=== PATIENT | male | born 1945 | race African-American/Black ===

== ENCOUNTER 2018-05-18 10:07 | Inpatient (IN) ==
[2018-05-18] MEDS ORDERED: Diphtheria/Tetanus/Pertussis Vaccine Inj 0.5 ML Syringe IM ONE (10:12)
[2018-05-18] MEDS ORDERED: Morphine Inj 4 MG/ML Vial ONE (10:12)
[2018-05-18 10:30] LABS: Baso % (Auto) 0.6 % (0.0-2.0); Eos % (Auto) 0.6 % (0.0-4.0); Hematocrit 40.1 % (39.0-51.0); Hemoglobin 13.3 gm/dL (13.0-17.0); Lymph # (Auto) 1.8 th/mm3 (1.0-4.8); Lymph % (Auto) 33.9 % (9.0-44.0); Mean Corpuscular HGB Conc 33.3 % (32.0-36.0); Mean Corpuscular Hemoglobin 29.4 pg (27.0-34.0); Mean Corpuscular Volume 88.3 fL (80.0-100.0); Mono # (Auto) 0.4 th/mm3 (0.0-0.9); Mono % (Auto) 7.8 % (0.0-8.0); Neut # (Auto) 3.1 th/mm3 (1.8-7.7); Neut % (Auto) 57.1 % (16.0-70.0); Platelet Count 162 th/mm3 (150-450); Red Blood Count 4.54 mil/mm3 (4.50-5.90); Red Cell Distribution Width 15.1 % (11.6-17.2); White Blood Count 5.4 th/mm3 (4.0-11.0)
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
[2018-05-18 10:46] LABS: Activated Partial Thrombo Time 20.3 sec (24.3-30.1); Prothrombin Time 10.5 sec (9.8-11.6)
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
[2018-05-18] MEDS ORDERED: Morphine Inj 4 MG/ML Vial IV.PUSH ONE (11:05)
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
[2018-05-18] MEDS ORDERED: Lidocaine 2% Inj 50 ML Vial NERV BLOCK ONE (11:46)
[2018-05-18] MEDS ORDERED: Lidocaine 1% Inj 50 ML Vial INFILTRATN ONE (11:47)
[2018-05-18 12:17] LABS: Creatine Kinase 452 U/L (39-308)
[2018-05-18 12:29] LABS: CKMB Percent 0.9 % (0.0-4.0); Creatine Kinase MB 4.2 ng/mL (0.5-3.6)
[2018-05-18] MEDS ORDERED: Bisacodyl 10 MG Supp RECTAL PRN (13:03)
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
[2018-05-18] MEDS: Sod Chloride 0.9% Inj 1,000 ML IV.CONT SCH ×2 (13:26→22:33)
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
--- NOTE | 2018-05-18 17:35 | ECHRPT ---
Indication: CHEST PAIN, SYNCOPE CONCLUSIONS Normal left ventricular size. The left ventricular systolic function is [id number] reduced with an estimated ejection fra ction in the range of 35-40%. There is trace tricuspid valve regurgitation. The estimated pulmonary arterial pressure is 26 mmHg. trace aortic valve regurgitation BP: / HR: Rhythm: Sinus MEASUREMENTS (Male / Female) Normal Values Technical Quality:Fair 2D ECHO LV Diastolic Diameter PLAX 4.9 cm 4.2 - 5.9 / 3.9 - 5.3 cm LV Systolic Diameter PLAX 4.1 cm IVS Diastolic Thickness 1.3 cm 0.6 - 1.0 / 0.6 - 0.9 cm LVPW Diastolic Thickness 1.3 cm 0.6 - 1.0 / 0.6 - 0.9 cm LV Relative Wall Thickness 0.5 RV Internal Dim ED PLAX 2.6 cm LVOT Diameter 2.5 cm Aortic Root Diameter 3.7 cm LA Systolic Diameter LX 3.5 cm 3.0 - 4.0 / 2.7 - 3.8 cm M-MODE AV Cusp Separation MM 1.9 cm DOPPLER AV Peak Velocity 132.0 cm/s AV Peak Gradient 7.0 mmHg AV Mean Gradient 4.0 mmHg AV Velocity Time Integral 22.0 cm LVOT Peak Velocity 94.0 cm/s LVOT Peak Gradient 3.5 mmHg LVOT Velocity Time Integral 17.7 cm AV Area Cont Eq vti 3.9 cm AV Area Cont Eq pk 3.5 cm Mitral E Point Velocity 51.3 cm/s Mitral A Point Velocity 85.9 cm/s Mitral E to A Ratio 0.6 LV E' Lateral Velocity 5.6 cm/s Mitral E to LV E' Lateral Ratio 9.2 LV E' Septal Velocity 4.4 cm/s Mitral E to LV E' Septal Ratio 11.7 TR Peak Velocity 200.0 cm/s TR Peak Gradient 16.0 mmHg Right Atrial Pressure 10.0 mmHg Pulmonary Artery Systolic Pressu 26.0 mmHg Right Ventricular Systolic Press 26.0 mmHg PV Peak Velocity 81.2 cm/s PV Peak Gradient 2.6 mmHg FINDINGS LEFT VENTRICLE Normal left ventricular size. The left ventricular systolic function is [id number] reduced with an estimated ejection fra ction in the range of 35-40%. RIGHT VENTRICLE Normal right ventricular size and systolic function. LEFT ATRIUM The left atrial size is normal. RIGHT ATRIUM The right atrial size is normal. ATRIAL SEPTUM Normal atrial septal thickness without atrial level shunting by limited color doppler interrogation. AORTA The aortic root and proximal ascending aorta are normal in size on limited imaging. MITRAL VALVE Structurally normal mitral valve. No mitral valve stenosis or regurgitation. AORTIC VALVE Trileaflet aortic valve. No aortic valve stenosis or regurgitation. TRICUSPID VALVE There is trace tricuspid valve regurgitation. The estimated pulmonary arterial pressure is 26 mmHg. PULMONARY VALVE No pulmonary valve regurgitation or stenosis. VESSELS The inferior vena cava is normal in size. PERICARDIUM No pericardial effusion. Gavin Persaud MD, FACC, [facility] (Electronically Signed) Final Date:18 May 2018 17:34
[2018-05-18] MEDS: ceFAZolin Inj 2,000 MG in Sodium Chlor 0.9% Inj 80 ML IV.SIG SCH ×2 (18:53→23:57)
[2018-05-18] MEDS: Famotidine PF Inj 20 MG/2 ML Vial IV.PUSH SCH (20:48)
[2018-05-18] MEDS: Senna/Docusate Sodium 8.6/50 MG Tablet PO SCH (20:48)
[2018-05-19] MEDS: Sod Chloride 0.9% Inj 1,000 ML IV.CONT SCH ×4 (00:33→23:30)
[2018-05-19] MEDS ORDERED: Chlorhexidine Gluconate 2% 1 Pack (2 Cloths) TOPICAL PRN (04:00)
[2018-05-19 04:21] LABS: Baso % (Auto) 0.2 % (0.0-2.0); Eos % (Auto) 0.3 % (0.0-4.0); Hematocrit 35.5 % (39.0-51.0); Hemoglobin 11.9 gm/dL (13.0-17.0); Lymph # (Auto) 1.3 th/mm3 (1.0-4.8); Lymph % (Auto) 16.7 % (9.0-44.0); Mean Corpuscular HGB Conc 33.4 % (32.0-36.0); Mean Corpuscular Hemoglobin 29.3 pg (27.0-34.0); Mean Corpuscular Volume 87.5 fL (80.0-100.0); Mean Platelet Volume 8.4 fL (7.0-11.0); Mono # (Auto) 0.7 th/mm3 (0.0-0.9); Mono % (Auto) 9.4 % (0.0-8.0); Neut # (Auto) 5.8 th/mm3 (1.8-7.7); Neut % (Auto) 73.4 % (16.0-70.0); Platelet Count 130 th/mm3 (150-450); Red Blood Count 4.06 mil/mm3 (4.50-5.90); Red Cell Distribution Width 15.2 % (11.6-17.2); White Blood Count 7.9 th/mm3 (4.0-11.0)
[2018-05-19 04:41] LABS: Calcium 8.1 mg/dL (8.5-10.1); Carbon Dioxide 23.7 meq/L (21.0-32.0); Potassium 3.6 meq/L (3.5-5.1)
[2018-05-19] MEDS: Chlorhexidine Gluconate 2% 1 Pack (2 Cloths) TOPICAL SCH (05:33)
[2018-05-19] MEDS: ceFAZolin Inj 2,000 MG in Sodium Chlor 0.9% Inj 80 ML IV.SIG SCH ×3 (06:24→23:00)
--- NOTE | 2018-05-19 08:12 | P.PN ---
Subjective Interval history: No acute events overnight. Patient still reports pain in his upper face. Reports that his vision has improved from yesterday in the right eye. He also notes that he has been having some nasal drainage. Today he also reports limited mobility in his right leg as compared to his left leg. Physical Exam Vital signs: Vital Signs 05/18/18 10:05 05/18/18 10:08 05/18/18 10:10 Temperature Pulse Rate 88 Respiratory Rate Blood Pressure Pulse Oximetry 100 100 05/18/18 10:45 05/18/18 10:50 05/18/18 11:20 Temperature 97.9 F 97.8 F Pulse Rate 88 76 Respiratory Rate 26 H 18 18 Blood Pressure 170/96 H 157/98 H Pulse Oximetry 100 99 05/18/18 11:43 05/18/18 12:43 05/18/18 13:09 Temperature 97.8 F 97.8 F 97.9 F Pulse Rate 76 79 76 Respiratory Rate 18 20 20 Blood Pressure 162/99 H 155/93 H 146/95 H Pulse Oximetry 98 100 98 05/18/18 14:20 05/18/18 15:15 05/18/18 16:00 Temperature 97.9 F 98.7 F 98.7 F Pulse Rate 76 76 79 Respiratory Rate 20 20 22 Blood Pressure 133/77 183/104 H 180/110 H Pulse Oximetry 99 99 98 05/18/18 17:00 05/18/18 17:11 05/18/18 18:00 Temperature Pulse Rate 76 78 77 Respiratory Rate 18 20 16 Blood Pressure 167/108 H 170/108 H Pulse Oximetry 97 95 05/18/18 18:30 05/18/18 19:00 05/18/18 20:00 Temperature 98.4 F Pulse Rate 71 68 Respiratory Rate 13 12 Blood Pressure 158/100 H 157/99 H 168/100 H Pulse Oximetry 98 100 05/18/18 21:00 05/18/18 21:19 05/18/18 21:21 Temperature Pulse Rate 74 72 Respiratory Rate 29 H 22 Blood Pressure 176/101 H Pulse Oximetry 99 97 05/18/18 22:00 05/18/18 23:00 05/18/18 23:26 Temperature Pulse Rate 78 74 Respiratory Rate 11 L 10 L Blood Pressure 170/104 H 153/96 H Pulse Oximetry 95 97 96 05/19/18 00:00 05/19/18 01:00 05/19/18 02:00 Temperature 98.4 F Pulse Rate 67 68 68 Respiratory Rate 10 L 18 13 Blood Pressure 176/106 H 176/106 H 184/104 H Pulse Oximetry 100 100 100 05/19/18 03:00 05/19/18 03:09 05/19/18 03:10 Temperature Pulse Rate 72 74 Respiratory Rate 19 19 Blood Pressure 173/99 H Pulse Oximetry 100 98 05/19/18 04:00 05/19/18 05:00 05/19/18 06:00 Temperature 98.4 F Pulse Rate 72 72 68 Respiratory Rate 19 16 17 Blood Pressure 168/97 H 152/90 H 168/100 H Pulse Oximetry 97 100 100 Intake & Output 05/18/18 05/19/18 05/19/18 18:59 06:59 18:59 Intake Total 120 / 120 1200 / 1200 Output Total 300 / 300 Balance -180 / -180 1200 / 1200 Weight 100 kg 104.1 kg Intake: IV 1200 / 1200 NS Inj 1,000 ML @ 100 mls/hr IV 1000 / 1000 .CONT .Q10H MAU Rx#:[id number] Ancef Inj 2,000 MG In NS Inj 80 200 / 200 ML @ 200 mls/hr IV.SIG Q8H MAU Rx#:[id number] Oral 120 / 120 Output: Urine 300 / 300 Other: # Bowel Movements 0 Narrative: General: Resting in bed, appropriate, comfortable and in no apparent distress. Neurological: Alert and oriented to person, place, and time. HEENT: Head/Face: Bilateral midface edema R>L. Tenderness to palpation in the right infraorbital region. Incisions clean, dry and intact with sutures intact. Midface grossly mobile at the LeFort 1 level. C-collar in place. Eyes/Orbits: PERRL. EOMI. Chemosis of the right eye. . Oral Cavity/Oropharynx: Oral cavity with hemorrhagic crusting. Multiple teeth fractured at the level of the gingiva. Hematoma of the left buccal mucosa. Floor of mouth soft. Cardiovascular: Regular rate Pulmonary: Normal work of breathing. Extremities: Warm, well perfused. Results - Labs CBC & Chem 7: 05/19/18 03:56 05/19/18 03:56 Laboratory Results - last 24 hr 05/18/18 05/18/18 05/18/18 10:13 10:13 10:13 WBC 5.4 RBC 4.54 Hgb 13.3 POC Hgb (Calc) 13.9 Hct 40.1 POC Hct 41.0 MCV 88.3 MCH 29.4 MCHC 33.3 RDW 15.1 Plt Count 162 MPV 9.0 Neut % (Auto) 57.1 Lymph % (Auto) 33.9 Martin % (Auto) 7.8 Eos % (Auto) 0.6 Baso % (Auto) 0.6 Neut # (Auto) 3.1 Lymph # (Auto) 1.8 Martin # (Auto) 0.4 Eos # (Auto) 0.0 Baso # (Auto) 0.0 WBC Differential . Differential Comment Auto diff final PT 10.5 INR 1.0 APTT 20.3 L POC Sodium 142 Sodium POC Potassium 4.5 Potassium POC Chloride 106 Chloride Carbon Dioxide Anion Gap POC BUN 27 H BUN Creatinine POC Creatinine 1.9 H Estimated GFR POC Glucose 131 H Random Glucose Calcium Total Creatine Kinase CK-MB (CK-2) CK-MB (CK-2) % Troponin I Nasal Screen MRSA (PCR) Blood Type Blood Type Recheck Antibody Screen 05/18/18 05/18/18 05/18/18 10:13 10:13 19:15 WBC RBC Hgb POC Hgb (Calc) Hct POC Hct MCV MCH MCHC RDW Plt Count MPV Neut % (Auto) Lymph % (Auto) Martin % (Auto) Eos % (Auto) Baso % (Auto) Neut # (Auto) Lymph # (Auto) Martin # (Auto) Eos # (Auto) Baso # (Auto) WBC Differential Differential Comment PT INR APTT POC Sodium Sodium POC Potassium Potassium POC Chloride Chloride Carbon Dioxide Anion Gap POC BUN BUN Creatinine POC Creatinine Estimated GFR POC Glucose Random Glucose Calcium Total Creatine Kinase 452 H CK-MB (CK-2) 4.2 H CK-MB (CK-2) % 0.9 Troponin I Less than 0.02 L Nasal Screen MRSA (PCR) Not detected Blood Type B Positive Blood Type Recheck Required Antibody Screen Negative 05/19/18 05/19/18 03:56 03:56 WBC 7.9 RBC 4.06 L Hgb 11.9 L POC Hgb (Calc) Hct 35.5 L POC Hct MCV 87.5 MCH 29.3 MCHC 33.4 RDW 15.2 Plt Count 130 L MPV 8.4 Neut % (Auto) 73.4 H Lymph % (Auto) 16.7 Martin % (Auto) 9.4 H Eos % (Auto) 0.3 Baso % (Auto) 0.2 Neut # (Auto) 5.8 Lymph # (Auto) 1.3 Martin # (Auto) 0.7 Eos # (Auto) 0.0 Baso # (Auto) 0.0 WBC Differential . Differential Comment Auto diff final PT INR APTT POC Sodium Sodium 142 POC Potassium Potassium 3.6 POC Chloride Chloride 108 H Carbon Dioxide 23.7 Anion Gap 10 POC BUN BUN 25 H Creatinine 1.54 H POC Creatinine Estimated GFR 47 L POC Glucose Random Glucose 114 H Calcium 8.1 L Total Creatine Kinase CK-MB (CK-2) CK-MB (CK-2) % Troponin I Nasal Screen MRSA (PCR) Blood Type Blood Type Recheck Antibody Screen - Imaging Impressions Chest X-Ray 05/18/18 10:08 CONCLUSION: No acute cardiopulmonary disease identified. Pelvis X-Ray 05/18/18 10:08 CONCLUSION: No evidence of fracture. Abdomen/Pelvis CT 05/18/18 10:15 CONCLUSION: 1. Subtle subcapsular hypodensity in the inferior right lobe of the liver is likely artifactual due to artifact from patient's arms. Although very unlikely, a subtle liver laceration cannot be entirely excluded. 2. Otherwise, no acute traumatic abnormality in the abdomen or pelvis. Cervical Spine CT 05/18/18 10:15 CONCLUSION: 1. Small nondisplaced fracture of the posterior tubercle of the right transverse process of C7. No other fractures identified. Alignment within normal limits. 2. Multilevel degenerative findings of the cervical spine with mild central canal narrowing at multiple levels. Chest CT 05/18/18 10:15 CONCLUSION: 1. Dilation of the ascending aorta, aortic arch and descending thoracic aorta as above. There is no evidence of traumatic aortic injury. 2. The lungs are clear. No pneumothorax is identified. Face CT 05/18/18 10:15 CONCLUSION: Extensive central facial bone fractures bilaterally including fractures involving the nasal bone, maxillary sinuses, right orbit, and hard palate. Head CT 05/18/18 10:15 CONCLUSION: 1. Complex facial bone fractures. Please see facial bone CT exam for additional details. 2. No acute intracranial abnormality. . Assessment and Plan - Assessment (1) LeFort I fracture of maxilla Code(s): S02.411A - LeFort I fracture, initial encounter for closed fracture Status: Acute (2) Nasal bone fracture Code(s): S02.2XXA - Fracture of nasal bones, initial encounter for closed fracture Status: Acute (3) Orbital fracture Code(s): S02.80XA - Fracture of other specified skull and facial bones, unspecified side, initial encounter for closed fracture Status: Acute (4) Fracture, palate closed Code(s): S02.80XA - Fracture of other specified skull and facial bones, unspecified side, initial encounter for closed fracture Status: Acute - Plan Patient will be posted for the OR for ORIF of a LeFort 1 fracture and closed reduction of his nasal bone fractures as well as extraction of indicated teeth once patient is stable for OR. Right orbital fracture is minimally displaced and risks outweigh benefits at this time for repair. No evidence of entrapment of the extraocular muscles at the current time. Surgical risks and benefits were discussed with the patient, including but not limited to pain, swelling, bleeding, infection, nerve/vessel injury, scarring, temporomandibular dysfunction. All patient questions were answered. Patient has elected to proceed with procedure. Written and verbal consent obtained. As the maxillary fractures are open, agree with Ancef for antibiotic prophylaxis Please maintain sinus precautions to avoid subcutaneous emphysema. No nose blowing. Sneeze and cough with an open mouth. Gentle oral hygiene with Chlorhexidine swabs twice daily. Please make patient NPO at midnight tonight for surgery scheduled for 0800 on 05/20/18, [place] with clear liquid diet until then. Thank you for this consultation. Please don't hesitate to contact me at [phone] with any additional questions or concerns. Lawson Hamm DDS, MD (1) LeFort I fracture of maxilla Qualifiers: Encounter type: initial encounter Fracture type: closed Qualified Code(s): S02.411A - LeFort I fracture, initial encounter for closed fracture (2) Nasal bone fracture Qualifiers: Encounter type: initial encounter Fracture type: closed Qualified Code(s): S02.2XXA - Fracture of nasal bones, initial encounter for closed fracture (3) Orbital fracture Qualifiers: Encounter type: initial encounter Fracture type: closed Qualified Code(s): S02.80XA - Fracture of other specified skull and facial bones, unspecified side , initial encounter for closed fracture (4) Fracture, palate closed Qualifiers: Encounter type: initial encounter Qualified Code(s): S02.80XA - Fracture of other specified skull and facial bones, unspecified side, initial encounter for closed fracture
[2018-05-19] MEDS: Senna/Docusate Sodium 8.6/50 MG Tablet PO SCH ×2 (08:25→21:09)
[2018-05-19] MEDS: Lisinopril 20 MG Tablet PO SCH (08:25)
[2018-05-19] MEDS: Famotidine PF Inj 20 MG/2 ML Vial IV.PUSH SCH ×2 (08:25→21:09)
--- NOTE | 2018-05-19 12:21 | US ---
EXAM DATE: 05/19/2018 12:13 PM EDT AGE/SEX: 72 years / Male INDICATIONS: Syncope. CLINICAL DATA: This is the patient's initial encounter. Patient reports that signs and symptoms have been present for 1 day and indicates a pain score of 0/10. MEDICAL/SURGICAL HISTORY: . High blood pressure. . Surgery on arm. COMPARISON: No prior exams available for comparison. VELOCITY PARAMETERS: ICA/CCA Ratio: Right 0.8 , Left 1.3 ICA: Right 50 cm/sec, Left 77 cm/sec CCA: Right 66 cm/sec, Left 61 cm/sec ECA: Right 78 cm/sec, Left 84 cm/sec Vertebral: Right 52 cm/sec antegrade, Left 59 cm/sec antegrade FINDINGS: Right Carotid: No significant plaque is visualized.The waveforms are within normal limits. Left Carotid: Mild arteriosclerotic plaque is visualized. The waveforms are within normal limits. Other: None. CONCLUSION: 1. Right Internal Carotid Artery: No evidence of significant stenosis. 2. Left Internal Carotid Artery: No evidence of significant stenosis. Electronically signed by: Karo Rubio MD 05/19/2018 12:20 PM EDT
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
--- NOTE | 2018-05-19 14:29 | ECG ---
Date Performed: 05/18/2018 Time Performed: 11:02:28 PTAGE: 89 years EKG: Sinus rhythm WITH FIRST DEGREE AV BLOCK LEFT VENTRICULAR HYPERTROPHY ST-T CHANGES secondary to LVH vs ischemia vs other ABNORMAL ECG NO PREVIOUS TRACING DOCTOR: Roshni Jolly Interpretating Date/Time 05/19/2018 14:28:57
--- NOTE | 2018-05-19 20:18 | XR ---
EXAM DATE: 05/19/2018 8:08 PM EDT AGE/SEX: 72 years / Male INDICATIONS: Right knee pain and swelling. CLINICAL DATA: This is the patient's initial encounter. Patient reports that signs and symptoms have been present for 2 days and indicates a pain score of 7/10. MEDICAL/SURGICAL HISTORY: None. None. COMPARISON: No prior exams available for comparison. FINDINGS: There is a horizontal fracture at the junction of the mid pole and superior pole of the patella. 2 mm displacement. Large joint effusion. Prominent anterior soft tissue swelling. Small tricompartmental osteophytes. No evidence of joint narrowing. CONCLUSION: Horizontal minimally displaced patellar fracture. Electronically signed by: Rell Dolan MD 05/19/2018 8:16 PM EDT
[2018-05-20] MEDS: Chlorhexidine Gluconate 2% 1 Pack (2 Cloths) TOPICAL SCH (04:49)
[2018-05-20 05:17] LABS: Baso % (Auto) 0.4 % (0.0-2.0); Eos # (Auto) 0.1 th/mm3 (0.0-0.4); Eos % (Auto) 1.8 % (0.0-4.0); Hematocrit 35.2 % (39.0-51.0); Hemoglobin 11.7 gm/dL (13.0-17.0); Lymph # (Auto) 1.3 th/mm3 (1.0-4.8); Lymph % (Auto) 20.4 % (9.0-44.0); Mean Corpuscular HGB Conc 33.2 % (32.0-36.0); Mean Corpuscular Hemoglobin 29.2 pg (27.0-34.0); Mean Corpuscular Volume 87.9 fL (80.0-100.0); Mono # (Auto) 0.7 th/mm3 (0.0-0.9); Mono % (Auto) 10.2 % (0.0-8.0); Neut # (Auto) 4.4 th/mm3 (1.8-7.7); Neut % (Auto) 67.2 % (16.0-70.0); Platelet Count 112 th/mm3 (150-450); Red Blood Count 4.01 mil/mm3 (4.50-5.90); Red Cell Distribution Width 14.9 % (11.6-17.2); White Blood Count 6.6 th/mm3 (4.0-11.0)
[2018-05-20 05:34] LABS: Carbon Dioxide 25.8 meq/L (21.0-32.0); Potassium 3.8 meq/L (3.5-5.1)
[2018-05-20] MEDS: ceFAZolin Inj 2,000 MG in Sodium Chlor 0.9% Inj 80 ML IV.SIG SCH ×3 (06:17→22:37)
[2018-05-20] MEDS: Sod Chloride 0.9% Inj 1,000 ML IV.CONT SCH ×2 (06:17→18:26)
[2018-05-20] MEDS ORDERED: Lidocaine 2%/Epinephrine 1:200,000 PF Inj 20 ML Vial ONE (08:01)
[2018-05-20] MEDS ORDERED: Artificial Tears Opth Drops 15 ML Bottle ONE (08:02)
[2018-05-20] MEDS ORDERED: Chlorhexidine Gluconate 0.12% Liq 15 ML UDC ONE (08:02)
[2018-05-20] MEDS: Famotidine PF Inj 20 MG/2 ML Vial IV.PUSH SCH ×2 (08:31→21:26)
[2018-05-20] MEDS: Senna/Docusate Sodium 8.6/50 MG Tablet PO SCH ×2 (08:31→21:27)
[2018-05-20] MEDS ORDERED: Microfibrillar Collagen Hemostat 1 GM Packet TOPICAL ONE (08:55)
--- NOTE | 2018-05-20 08:56 | ECG ---
Date Performed: 05/19/2018 Time Performed: 11:08:14 PTAGE: 72 years EKG: Sinus rhythm with 1st degree A-V block --- Suspect arm lead reversal - only aVF, V1-V6 analyzed --- Anterolateral T wave changes may be due to myocardial ischemia Abnormal ECG-repeat ECG needed DOCTOR: Roshni Jolly Interpretating Date/Time 05/20/2018 08:54:42
[2018-05-20] MEDS: Hypromellose 0.3% Opth Gel 10 GM Bottle EACH EYE ONE ×2 (09:01→12:03)
[2018-05-20] MEDS ORDERED: Sugammadex Inj 200 MG/2 ML Vial IV.PUSH ONE (09:23)
[2018-05-20] MEDS ORDERED: Bupivacaine/Epinephrine 0.5% Inj 50 ML Vial ONE (09:52)
[2018-05-20] MEDS ORDERED: Balanced Salt Opth Irrigation 15 APPLIC/15 ML Bottle ONE (10:11)
[2018-05-20] MEDS ORDERED: *morphine SULFATE 10 MG/ML PERIprocedure ONLY ONE (10:42)
[2018-05-20] MEDS ORDERED: Dexmedetomidine Inj 200 MCG/2 ML Vial ONE (10:46)
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
[2018-05-20] MEDS ORDERED: fentaNYL Citrate Inj 100 MCG/2 ML Ampul ONE (11:02)
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
--- NOTE | 2018-05-20 11:35 | XR ---
EXAM DATE: 05/20/2018 11:30 AM EDT AGE/SEX: 72 years / Male INDICATIONS: Post right knee surgery. CLINICAL DATA: This is the patient's initial encounter. Patient reports that signs and symptoms have been present for 2 days and indicates a pain score of 8/10. MEDICAL/SURGICAL HISTORY: Non-responsive. Non-responsive. COMPARISON: [facility] [place], KNEE LIMITED RIGHT 10/17V, 05/19/2018. . FINDINGS: Portable views of the right knee demonstrate a comminuted nondisplaced fracture of the patella. There are medial joint line degenerative changes and a large area of dystrophic calcification involving th e medial femoral condyle. Osseous structures are otherwise unremarkable with normal mineralization an d alignment. Soft tissues demonstrate decreased joint effusion and anterior soft tissue edema. CONCLUSION: Comminuted nondisplaced fracture of the patella with decreased adjacent soft tissue edema and decreas ed size of the joint effusion. Electronically signed by: Karo Rubio MD 05/20/2018 11:34 AM EDT
[2018-05-20] MEDS ORDERED: Phenylephrine/NS 1000 MCG/10ML Syringe IV.PUSH ONE (12:00)
[2018-05-20] MEDS ORDERED: Succinylcholine Inj 100 MG/5 ML Syringe IV.PUSH ONE (12:00)
[2018-05-20] MEDS ORDERED: Lidocaine PF 1% Inj 5 ML Syringe INFILTRATN ONE (12:00)
[2018-05-20] MEDS ORDERED: Dexmedetomidine Inj 200 MCG in Sodium Chlor 0.9% Inj 48 ML IV.CONT PRN (12:01)
[2018-05-20] MEDS: Lisinopril 20 MG Tablet PO SCH (12:03)
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
[2018-05-20] MEDS: Hypromellose 0.3% Opth Gel 10 GM Bottle EACH EYE SCH (21:27)
[2018-05-21] MEDS: Sod Chloride 0.9% Inj 1,000 ML IV.CONT SCH ×4 (03:00→23:38)
[2018-05-21 03:50] LABS: Baso % (Auto) 0.5 % (0.0-2.0); Eos # (Auto) 0.1 th/mm3 (0.0-0.4); Eos % (Auto) 0.7 % (0.0-4.0); Hematocrit 28.7 % (39.0-51.0); Hemoglobin 9.8 gm/dL (13.0-17.0); Lymph # (Auto) 1.5 th/mm3 (1.0-4.8); Lymph % (Auto) 18.1 % (9.0-44.0); Mean Corpuscular HGB Conc 34.2 % (32.0-36.0); Mean Corpuscular Hemoglobin 29.8 pg (27.0-34.0); Mean Platelet Volume 8.5 fL (7.0-11.0); Mono # (Auto) 0.9 th/mm3 (0.0-0.9); Neut # (Auto) 5.7 th/mm3 (1.8-7.7); Neut % (Auto) 69.7 % (16.0-70.0); Platelet Count 98 th/mm3 (150-450); Red Cell Distribution Width 14.9 % (11.6-17.2); White Blood Count 8.2 th/mm3 (4.0-11.0)
[2018-05-21] MEDS: Chlorhexidine Gluconate 2% 1 Pack (2 Cloths) TOPICAL SCH (04:00)
[2018-05-21 04:06] LABS: Calcium 7.9 mg/dL (8.5-10.1); Carbon Dioxide 26.6 meq/L (21.0-32.0); Potassium 3.9 meq/L (3.5-5.1)
[2018-05-21 05:13] LABS: Ovalocytes 1+; Platelet Morphology Normal (Normal)
[2018-05-21] MEDS: ceFAZolin Inj 2,000 MG in Sodium Chlor 0.9% Inj 80 ML IV.SIG SCH ×3 (06:34→23:39)
--- NOTE | 2018-05-21 07:00 | P.PN ---
Subjective Interval history: Patient is now s/p ORIF of LeFort 1 fracture and closed reduction of right nasal bone fracture, extraction of teeth #8,9,14,27 on 05/20/18. Patient reports minimal discomfort in his face but does report numbness bilaterally in the malar region. He reports his right knee pain is improved as well. He denies any changes in his vision and he also reports that his bite feels much improved from prior to surgery. Physical Exam Vital signs: Vital Signs 05/20/18 10:30 05/20/18 10:45 05/20/18 11:00 Temperature 98.7 F Pulse Rate 98 H 89 87 Respiratory Rate 20 20 20 Blood Pressure 156/83 H 138/75 141/78 H Pulse Oximetry 100 100 100 05/20/18 11:15 05/20/18 11:25 05/20/18 12:00 Temperature Pulse Rate 93 H 81 71 Respiratory Rate 20 20 20 Blood Pressure 138/96 H 150/93 H 141/88 H Pulse Oximetry 100 98 100 05/20/18 14:00 05/20/18 15:15 05/20/18 16:00 Temperature Pulse Rate 75 66 75 Respiratory Rate 17 19 Blood Pressure 172/87 H Pulse Oximetry 100 05/20/18 18:00 05/20/18 20:00 05/20/18 20:32 Temperature 98.0 F Pulse Rate 75 78 84 Respiratory Rate 27 H 17 Blood Pressure 155/98 H Pulse Oximetry 98 97 05/20/18 22:00 05/21/18 00:00 05/21/18 02:00 Temperature 99.1 F Pulse Rate 72 76 82 Respiratory Rate 22 Blood Pressure 159/99 H Pulse Oximetry 96 05/21/18 04:00 05/21/18 06:00 Temperature 98.9 F Pulse Rate 78 80 Respiratory Rate 16 Blood Pressure 172/103 H Pulse Oximetry 95 Intake & Output 05/20/18 05/20/18 05/21/18 06:59 18:59 06:59 Intake Total 1100 / 1100 4840 / 4840 1400 / 1400 Output Total 750 / 750 1650 / 1650 850 / 850 Balance 350 / 350 3190 / 3190 550 / 550 Weight 96.7 kg 99.9 kg Intake: IV 1100 / 1100 1200 / 1200 1100 / 1100 NS Inj 1,000 ML @ 100 mls/hr IV 1000 / 1000 1000 / 1000 1000 / 1000 .CONT .Q10H MAU Rx#:[id number] Ancef Inj 2,000 MG In NS Inj 80 100 / 100 200 / 200 100 / 100 ML @ 200 mls/hr IV.SIG Q8H MAU Rx#:[id number] Oral 240 / 240 300 / 300 Anesthesia Amount 3400 / 3400 Output: Blood Draw 100 / 100 Urine 750 / 750 1250 / 1250 850 / 850 Estimated Blood Loss 100 / 100 Urine Amount (Catheter) 200 / 200 Straight 200 / 200 Other: # Voids 4 5 Date of Last Bowel Movement 05/18/18 05/18/18 05/18/18 Narrative: General: Resting in bed, appropriate, comfortable and in no apparent distress. Neurological: Alert and oriented to person, place, and time. HEENT: Head/Face: Bilateral midface edema. Decreased tenderness to palpation in the right infraorbital region. Incisions clean, dry and intact with sutures intact in right supraorbital and right lip region. C-collar in place Eyes/Orbits: PERRL. EOMI. Chemosis of the right eye, improved from previous day. . Oral Cavity/Oropharynx: Oral cavity with hemorrhagic crusting. Extraction sites are hemostatic with some hemorrhagic crusting in the anterior maxilla. Laceration in anterior lower lip is well approximated and hemostatic. Hematoma of the left buccal mucosa. Ecchymosis of the palatal vault. Floor of mouth soft. Cardiovascular: Increased rate Pulmonary: Normal work of breathing. Extremities: Splint in place over right knee. - Urinary Catheter Management Straight Cath placed during this visit: no Results - Labs CBC & Chem 7: 05/21/18 03:34 05/21/18 03:34 Laboratory Results - last 24 hr 05/21/18 05/21/18 03:34 03:34 WBC 8.2 RBC 3.30 L Hgb 9.8 L Hct 28.7 L MCV 87.0 MCH 29.8 MCHC 34.2 RDW 14.9 Plt Count 98 L MPV 8.5 Prelim Diff (Auto) Slide review pending Neut % (Auto) 69.7 Lymph % (Auto) 18.1 [place] % (Auto) 11.0 H Eos % (Auto) 0.7 Baso % (Auto) 0.5 Neut # (Auto) 5.7 Lymph # (Auto) 1.5 [place] # (Auto) 0.9 Eos # (Auto) 0.1 Baso # (Auto) 0.0 WBC Differential . Diff Scan Auto diff confirmed Differential Comment . Platelet Estimate Low L Platelet Morphology Normal Ovalocytes 1+ H Sodium 142 Potassium 3.9 Chloride 109 H Carbon Dioxide 26.6 Anion Gap 6 BUN 16 Creatinine 1.38 H Estimated GFR 62 L Random Glucose 99 Calcium 7.9 L - Imaging Impressions Carotid Doppler Study 05/19/18 00:00 CONCLUSION: 1. Right Internal Carotid Artery: No evidence of significant stenosis. 2. Left Internal Carotid Artery: No evidence of significant stenosis. Knee X-Ray 05/20/18 10:43 CONCLUSION: Comminuted nondisplaced fracture of the patella with decreased adjacent soft tissue edema and decreased size of the joint effusion. Assessment and Plan - Assessment (1) LeFort I fracture of maxilla Code(s): S02.411A - LeFort I fracture, initial encounter for closed fracture Status: Acute (2) Nasal bone fracture Code(s): S02.2XXA - Fracture of nasal bones, initial encounter for closed fracture Status: Acute (3) Orbital fracture Code(s): S02.80XA - Fracture of other specified skull and facial bones, unspecified side, initial encounter for closed fracture Status: Acute (4) Fracture, palate closed Code(s): S02.80XA - Fracture of other specified skull and facial bones, unspecified side, initial encounter for closed fracture Status: Acute - Plan 72 y/o M s/p ORIF LeFort 1 fracture, closed reduction right nasal bone fracture , and extraction of teeth #8,9,14,27 on 05/20/18. Doing well from a maxillofacial standpoint. Recommendations: - Agree with Ancef for antibiotic prophylaxis for 1 more week - Please maintain sinus precautions to avoid subcutaneous emphysema. No nose blowing. Sneeze and cough with an open mouth. - Gentle oral hygiene with Chlorhexidine swabs twice daily. - OK to brush remaining teeth at least twice a day - No showering of head until nasal splint is removed in 1 week - OK to advance to pureed diet if cleared by PROSTHETIC DENTIST Plan for follow-up in 1 week upon discharge and for nasal splint removal at [facility], [address] [place] [address]. Thank you for this consultation. Please don't hesitate to contact me at with any additional questions or concerns. Lawson Hamm DDS, MD Discharge Planning: Plan for follow-up in 1 week upon discharge and for nasal splint removal with me at [facility] (1) LeFort I fracture of maxilla Qualifiers: Encounter type: initial encounter Fracture type: closed Qualified Code(s): S02.411A - Le[place] I fracture, initial encounter for closed fracture (2) Nasal bone fracture Qualifiers: Encounter type: initial encounter Fracture type: closed Qualified Code(s): S02.2XXA - Fracture of nasal bones, initial encounter for closed fracture (3) Orbital fracture Qualifiers: Encounter type: initial encounter Fracture type: closed Qualified Code(s): S02.80XA - Fracture of other specified skull and facial bones, unspecified side , initial encounter for closed fracture (4) Fracture, palate closed Qualifiers: Encounter type: initial encounter Qualified Code(s): S02.80XA - Fracture of other specified skull and facial bones, unspecified side, initial encounter for closed fracture
[2018-05-21] MEDS: Senna/Docusate Sodium 8.6/50 MG Tablet PO SCH ×2 (09:46→23:38)
[2018-05-21] MEDS: Chlorhexidine Gluconate 0.12% Liq 15 ML UDC SWISH-SPIT SCH ×3 (09:46→19:02)
[2018-05-21] MEDS: Famotidine PF Inj 20 MG/2 ML Vial IV.PUSH SCH ×2 (09:46→23:38)
[2018-05-21] MEDS: Lisinopril 20 MG Tablet PO SCH (09:47)
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
[2018-05-21] MEDS: Hypromellose 0.3% Opth Gel 10 GM Bottle EACH EYE SCH (23:38)
[2018-05-22 04:45] LABS: Baso % (Auto) 0.6 % (0.0-2.0); Eos # (Auto) 0.1 th/mm3 (0.0-0.4); Eos % (Auto) 2.4 % (0.0-4.0); Hematocrit 28.7 % (39.0-51.0); Hemoglobin 9.8 gm/dL (13.0-17.0); Lymph # (Auto) 1.5 th/mm3 (1.0-4.8); Lymph % (Auto) 23.3 % (9.0-44.0); Mean Corpuscular HGB Conc 34.1 % (32.0-36.0); Mean Corpuscular Hemoglobin 29.5 pg (27.0-34.0); Mean Corpuscular Volume 86.6 fL (80.0-100.0); Mean Platelet Volume 8.7 fL (7.0-11.0); Mono # (Auto) 0.8 th/mm3 (0.0-0.9); Mono % (Auto) 12.7 % (0.0-8.0); Neut # (Auto) 3.8 th/mm3 (1.8-7.7); Platelet Count 97 th/mm3 (150-450); Red Blood Count 3.32 mil/mm3 (4.50-5.90); Red Cell Distribution Width 14.6 % (11.6-17.2); White Blood Count 6.3 th/mm3 (4.0-11.0)
[2018-05-22 05:11] LABS: Calcium 8.2 mg/dL (8.5-10.1); Carbon Dioxide 28.1 meq/L (21.0-32.0); Potassium 4.2 meq/L (3.5-5.1)
[2018-05-22 06:03] LABS: Ovalocytes 1+; Platelet Morphology Normal (Normal)
[2018-05-22] MEDS: ceFAZolin Inj 2,000 MG in Sodium Chlor 0.9% Inj 80 ML IV.SIG SCH ×2 (06:23→15:00)
[2018-05-22] MEDS: Chlorhexidine Gluconate 2% 1 Pack (2 Cloths) TOPICAL SCH (07:36)
--- NOTE | 2018-05-22 08:59 | P.PN ---
Subjective Interval history: Patient is 2 days s/p ORIF LeFort 1 fracture, closed reduction right nasal fracture, and extraction of teeth #8,9,14,27. Patient reports increased pain in his right eye with movements. He denies any vision changes. He reports that he has been tolerating a pureed diet without difficulty. He feels like it is getting easier to eat. Physical Exam Vital signs: Vital Signs 05/21/18 10:00 05/21/18 10:15 05/21/18 12:00 Temperature 98.2 F Pulse Rate 84 75 Respiratory Rate 15 15 Blood Pressure 161/102 H Pulse Oximetry 99 05/21/18 14:00 05/21/18 15:23 05/21/18 16:00 Temperature 99.0 F Pulse Rate 82 88 88 Respiratory Rate 16 22 Blood Pressure 151/95 H Pulse Oximetry 97 05/21/18 18:00 05/21/18 19:43 05/21/18 20:08 Temperature 98.1 F Pulse Rate 90 80 88 Respiratory Rate 19 16 Blood Pressure 144/80 H Pulse Oximetry 98 99 05/21/18 23:59 05/22/18 04:46 Temperature 98.0 F 97.7 F Pulse Rate 73 75 Respiratory Rate 18 18 Blood Pressure 168/100 H 155/96 H Pulse Oximetry 99 98 Intake & Output 05/21/18 05/22/18 05/22/18 18:59 06:59 18:59 Intake Total 440 / 440 460 / 460 Output Total 1999 Balance -1560 / -1560 460 / 460 Weight 99.9 kg Intake: IV 200 / 200 100 / 100 NS Inj 1,000 ML @ 100 mls/hr IV 0 / 0 .CONT .Q10H MAU Rx#:[id number] Ancef Inj 2,000 MG In NS Inj 80 200 / 200 100 / 100 ML @ 200 mls/hr IV.SIG Q8H MAU Rx#:[id number] Oral 240 / 240 360 / 360 Output: Urine 1999 Other: # Voids 6 6 Date of Last Bowel Movement 05/18/18 # Bowel Movements 0 0 Narrative: General: Resting in bed, appropriate, comfortable and in no apparent distress. Neurological: Alert and oriented to person, place, and time. HEENT: Head/Face: Bilateral midface edema. Incisions clean, dry and intact with sutures intact in right supraorbital and right lip region. Nasal splint in place. C-collar in place Eyes/Orbits: PERRL. EOMI. Chemosis of the right eye. . Oral Cavity/Oropharynx: Extraction sites are hemostatic. Laceration in anterior lower lip is well approximated and hemostatic. Maxillary vestibular incisions are well approximated and hemostatic. Hematoma of the left buccal mucosa. Ecchymosis of the posterior palatal vault. Palate is pink and well perfused. Floor of mouth soft. Uvula not visualized. Cardiovascular: Regular rate. Pulmonary: Normal work of breathing. Extremities: Splint in place over right knee. - Urinary Catheter Management Straight Cath placed during this visit: no Results - Labs CBC & Chem 7: 05/22/18 04:31 05/22/18 04:31 Laboratory Results - last 24 hr 05/22/18 05/22/18 04:31 04:31 WBC 6.3 RBC 3.32 L Hgb 9.8 L Hct 28.7 L MCV 86.6 MCH 29.5 MCHC 34.1 RDW 14.6 Plt Count 97 L MPV 8.7 Prelim Diff (Auto) Slide review pending Neut % (Auto) 61.0 Lymph % (Auto) 23.3 [place] % (Auto) 12.7 H Eos % (Auto) 2.4 Baso % (Auto) 0.6 Neut # (Auto) 3.8 Lymph # (Auto) 1.5 [place] # (Auto) 0.8 Eos # (Auto) 0.1 Baso # (Auto) 0.0 WBC Differential . Diff Scan Auto diff confirmed Differential Comment . Platelet Estimate Low L Platelet Morphology Normal Ovalocytes 1+ H Keratocytes Occ H Sodium 141 Potassium 4.2 Chloride 105 Carbon Dioxide 28.1 Anion Gap 8 BUN 13 Creatinine 1.28 Estimated GFR 67 L Random Glucose 96 Calcium 8.2 L Assessment and Plan - Assessment (1) LeFort I fracture of maxilla Code(s): S02.411A - LeFort I fracture, initial encounter for closed fracture Status: Acute (2) Nasal bone fracture Code(s): S02.2XXA - Fracture of nasal bones, initial encounter for closed fracture Status: Acute (3) Orbital fracture Code(s): S02.80XA - Fracture of other specified skull and facial bones, unspecified side, initial encounter for closed fracture Status: Acute (4) Fracture, palate closed Code(s): S02.80XA - Fracture of other specified skull and facial bones, unspecified side, initial encounter for closed fracture Status: Acute - Plan 72 y/o M s/p ORIF LeFort 1 fracture, closed reduction right nasal bone fracture , and extraction of teeth #8,9,14,27 on 05/20/18. Doing well from a maxillofacial standpoint. Recommendations: - Agree with Ancef for antibiotic prophylaxis for total of 1 week s/p surgery, ok to convert to PO on discharge for total course of 1 week post-op - Please maintain sinus precautions to avoid subcutaneous emphysema. No nose blowing. Sneeze and cough with an open mouth. - Gentle oral hygiene with Chlorhexidine swabs twice daily. - OK to brush remaining teeth at least twice a day - No showering of head until nasal splint is removed in 1 week - Continue soft diet for 6 weeks - Sutures on face will be removed at follow-up appointment Plan for follow-up in 1 week upon discharge and for nasal splint removal at [facility] [address] Thank you for this consultation. Please don't hesitate to contact me at [phone] with any additional questions or concerns. Lawson Hamm DDS, MD Discharge Planning: Plan for follow-up in 1 week upon discharge and for nasal splint removal with me at [facility] [address] (1) LeFort I fracture of maxilla Qualifiers: Encounter type: initial encounter Fracture type: closed Qualified Code(s): S02.411A - Le[place] I fracture, initial encounter for closed fracture (2) Nasal bone fracture Qualifiers: Encounter type: initial encounter Fracture type: closed Qualified Code(s): S02.2XXA - Fracture of nasal bones, initial encounter for closed fracture (3) Orbital fracture Qualifiers: Encounter type: initial encounter Fracture type: closed Qualified Code(s): S02.80XA - Fracture of other specified skull and facial bones, unspecified side , initial encounter for closed fracture (4) Fracture, palate closed Qualifiers: Encounter type: initial encounter Qualified Code(s): S02.80XA - Fracture of other specified skull and facial bones, unspecified side, initial encounter for closed fracture
[2018-05-22] MEDS: Lisinopril 20 MG Tablet PO SCH (09:00)
[2018-05-22] MEDS: Famotidine PF Inj 20 MG/2 ML Vial IV.PUSH SCH ×2 (09:00→21:00)
[2018-05-22] MEDS: Senna/Docusate Sodium 8.6/50 MG Tablet PO SCH ×2 (09:00→21:00)
[2018-05-22] MEDS: Sod Chloride 0.9% Inj 1,000 ML IV.CONT SCH (09:46)
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
[2018-05-22] MEDS: Chlorhexidine Gluconate 0.12% Liq 15 ML UDC SWISH-SPIT SCH ×2 (12:32→21:00)
[2018-05-22] MEDS: Enoxaparin Inj 40 MG/0.4 ML Syringe SQ SCH (12:45)
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
[2018-05-23] MEDS: ceFAZolin Inj 2,000 MG in Sodium Chlor 0.9% Inj 80 ML IV.SIG SCH ×4 (03:00→23:50)
[2018-05-23] MEDS: Hypromellose 0.3% Opth Gel 10 GM Bottle EACH EYE SCH ×2 (04:54→22:28)
[2018-05-23] MEDS: Sod Chloride 0.9% Inj 1,000 ML IV.CONT SCH ×3 (05:11→18:26)
[2018-05-23] MEDS: Chlorhexidine Gluconate 2% 1 Pack (2 Cloths) TOPICAL SCH (05:24)
[2018-05-23] MEDS: Bisacodyl 10 MG Supp RECTAL ONE ×2 (07:32→07:41)
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
[2018-05-23] MEDS: amLODIPine 5 MG Tablet PO SCH (11:29)
[2018-05-23] MEDS: Senna/Docusate Sodium 8.6/50 MG Tablet PO SCH ×2 (11:29→22:30)
[2018-05-23] MEDS: Chlorhexidine Gluconate 0.12% Liq 15 ML UDC SWISH-SPIT SCH ×3 (11:29→18:26)
[2018-05-23] MEDS: Lisinopril 20 MG Tablet PO SCH (11:29)
[2018-05-23] MEDS: Enoxaparin Inj 40 MG/0.4 ML Syringe SQ SCH (11:30)
[2018-05-23] MEDS: Famotidine PF Inj 20 MG/2 ML Vial IV.PUSH SCH ×2 (11:31→22:27)
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
[2018-05-24] MEDS: Sod Chloride 0.9% Inj 1,000 ML IV.CONT SCH ×2 (03:27→14:16)
[2018-05-24] MEDS: ceFAZolin Inj 2,000 MG in Sodium Chlor 0.9% Inj 80 ML IV.SIG SCH (08:09)
[2018-05-24] MEDS: Senna/Docusate Sodium 8.6/50 MG Tablet PO SCH (08:27)
[2018-05-24] MEDS: Lisinopril 20 MG Tablet PO SCH (08:27)
[2018-05-24] MEDS: amLODIPine 5 MG Tablet PO SCH (08:27)
[2018-05-24] MEDS: Chlorhexidine Gluconate 0.12% Liq 15 ML UDC SWISH-SPIT SCH ×3 (08:27→17:19)
[2018-05-24] MEDS: Enoxaparin Inj 40 MG/0.4 ML Syringe SQ SCH (08:27)
[2018-05-24 08:29] VITALS: RESP 16
[2018-05-24] MEDS: Famotidine PF Inj 20 MG/2 ML Vial IV.PUSH SCH (10:27)
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
--- NOTE | 2018-05-24 14:33 | P.DCO ---
- Physical Therapy Order: Evaluate and treat, Improve ambulation, Strength and gait training - Home Health Nursing Order: Nursing assessment with vital signs - Certification I have seen patient Israel Erickson on 05/24/18. My clinical findings support the need for the requested home health care services because: Deconditioned with increased weakness, High risk of falls I certify that my clinical findings support that this patient is homebound because: Impaired cognitive ability/safety
[2018-05-24 16:50] VITALS: BP 134/84; PULSE 86; TEMP 97.2; O2SAT 98
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
== END 2018-05-24 21:06 | disposition home health service (06) ==
LOC: NEPI 10:07 → NEDA 12:50 → EDBD 12:50 → N03 14:20 → N06 05-21 18:42
PROVIDERS: ADMIT Surgery; ATTEND Surgery